=== PATIENT | female | born 1930 | race Caucasian/White ===

== ENCOUNTER → 2018-05-04 | Outpatient (CLI) | payer MEDICARE, BC ==
--- NOTE | 2018-05-04 11:04 | XR ---
EXAMINATION TYPE: XR tibia fibula RT DATE OF EXAM: 05/04/2018 COMPARISON: NONE HISTORY: Open wound leg following fall TECHNIQUE: 2 view right tibia and fibula FINDINGS: Plate and screws are present from prior ankle fracture repair. In the lateral projection there is a soft tissue injury over the distal anterior tibia. There is a sm all 0.2 cm density within the soft tissues could be a small foreign body. Note is made of vascular ca lcification within the upper [id number]. IMPRESSION: 1. Soft tissue injury distal foreleg. A tiny foreign body is not excluded
== END | disposition home or self-care (01) ==
LOC: RADXRYALE 10:19
PROVIDERS: ATTEND Physician Assistant Medical
DX: S81.801A Unspecified open wound, right lower leg, initial encounter (principal)